=== PATIENT | male | born 1950 | race Caucasian/White ===

== ENCOUNTER 2016-12-17 16:44 | Emergency (ER) | payer MEDICARE, BC ==
[2016-12-17 17:03] VITALS: BP 135/77
--- OUTSIDE RECORDS SUMMARY | 2016-12-17 18:32 | XMS REPORT | Continuity of Care Document ---
:1950 Author Organization [facility] ([facility]) [place] [address] Phone [phone] Care Team Providers Name Role Phone Andres Smyth Primary Care Provider [phone] Source Comments This disclosure is being made pursuant to the Care Everywhere program, applicable federal and state laws, and may not contain all informaitonavailable regarding this patient.[facility] ([facility]) Active Allergies and Adverse Reactions Allergen Noted Date Severity Reactions Comments Loratadine 11/15/2011 Visual changes Penicillins 11/15/2011 Anaphylaxis Pseudoephedrine Tannate 11/15/2011 OTHER insomnia Sertraline 11/15/2011 Headache Sildenafil 11/15/2011 Unknown Tadalafil 11/15/2011 Unknown Terazosin 11/15/2011 Dizziness Tetracycline 11/15/2011 Anaphylaxis Trinalin 11/15/2011 OTHER insomnia Current Medications Prescription Sig. Disp. Refills Start Date End Date Status aspirin 81 mg EC Take 81 mg by mouth Active tablet daily. gabapentin 300 mg Take 300 mg by mouth 2 Active capsule times daily. hydrALAZINE 100 mg Take 100 mg by mouth 3 Active tablet times daily. acebutolol 400 mg Take 400 mg by mouth 2 Active capsule times daily. azelastine (ASTELIN) use 1 [place] into the Active 0.1 % (137 mcg) nasal nose 2 times daily. Use spray in each nostril as directed testosterone inject 200 mg Active cypionate intramuscularly every (DEPO-TESTOSTERONE) week. 200 mg/mL injection hydrOXYzine HCl 25 mg Take 100 mg by mouth 2 Active tablet times daily. gemfibrozil 600 mg Take 600 mg by mouth 2 Active tablet times daily. vardenafil (LEVITRA) Take 20 mg by mouth as Active 20 mg tablet needed. omega-3 fatty acids Take 2 g by mouth 2 Active (LOVAZA) 1 gram cap times daily. pirbuterol (MAXAIR Use 2 Puffs by Active AUTOHALER) 200 inhalation every 4 mcg/Inhalation hours as needed. inhaler metFORMIN 500 mg Take 500 mg by mouth 2 Active tablet times daily with meals. triamcinolone use 2 Sprays into the Active (NASACORT AQ) 55 mcg nose as needed. nasal inhaler amLODIPine (NORVASC) Take 10 mg by mouth Active 10 mg tablet daily. triamterene-hydrochlo Take 1 Tab by mouth Active rothiazide 75-50 mg daily. per tablet montelukast Take 10 mg by mouth Active (SINGULAIR) 10 mg daily. tablet salmeterol (SEREVENT Use 1 Puff by Active DISKUS) 50 mcg/dose inhalation 2 times diskus inhaler daily. losartan 25 mg tablet Take 25 mg by mouth Active daily. FLUTICASONE Use by inhalation as Active PROPIONATE (FLOVENT needed. HFA INH) tamsulosin (FLOMAX) Take 0.4 mg by mouth Active 0.4 mg ER capsule daily. Active Problems Problem Noted Date Enlarged prostate with urinary retention 11/17/2011 Diabetes mellitus 11/17/2011 HTN (hypertension) 11/17/2011 Asthma 11/17/2011 Arthritis 11/17/2011 Social History Tobacco Use Types Packs/Day Years Used Date Never Smoker Smokeless Tobacco: Never Used Alcohol Use Drinks/Week oz/Week Comments Yes Last Filed Vital Signs Vital Sign Reading Time Taken Blood Pressure 146/84 12/15/2011 2:00 PM [employer] Pulse 82 12/15/2011 2:00 PM [employer]ING [employer] Temperature 36.8 C (98.3 F) 12/15/2011 2:00 PM [employer]ING [employer]ING [employer]ERK Respiratory Rate 20 12/15/2011 2:00 PM [employer]CH[employer]ING [employer]ING [employer] Height 1.791 m (5' 10.5") 12/15/2011 2:00 PM [employer]CH[employer]ING [employer]ING CLERK Weight 117.935 kg (260 lb) 12/15/2011 2:00 PM [employer]CH[employer]ING [employer]ING [employer]ERK Body Mass Index 36.77 12/15/2011 2:00 PM [employer]CH[employer]ING [employer]ING [employer]ERK Oxygen Saturation 95% 12/15/2011 2:00 PM [employer]CH[employer]ING [employer]ING CLERK Plan of Care Health Maintenance Due Date Last Done Comments HCV Screening 1950 Hepatitis B Vaccine (1 of 3 - Primary Series) 1950 Tdap Vaccine 1960 DIABETIC: Cholesterol 1967 Diabetic: Hdl 1967 DIABETIC: Hemoglobin A1C 1967 Diabetic: Ldl 1967 DIABETIC: Microalbumin 1967 DIABETIC: Triglycerides 1967 Td Vaccine 1967 Colonoscopy 1999 Prostate Cancer Screening 1999 Zoster Vaccine 2009 DIABETIC: Foot Exam 12/03/2011 DIABETIC: Retinal Eye Exam 12/03/2011 Pneumococcal Vaccine (1 of 2 - PCV13) 2014 Influenza Vaccine: Seasonal (#1) 05/24/2016 Results from Last 3 Months Not on file
--- NOTE | 2016-12-17 18:41 | ERNOTE ---
Medical Problem HPI - Narrative Date of Service: 12/17/16 - General Chief Complaint: General Assessment Time Seen by Provider: 12/17/16 18:13 Source: patient Exam Limitations: no limitations - Immun/Allergies/Home Medications Immunizations: IMMUNIZATION HX Immunizations Up to Date Yes History of Influenza Vaccine Yes Allergies/Adverse Reactions: Allergies apple [Apple] Allergy (Severe, Verified 01/21/14 16:32) Anaphylaxis Penicillins Allergy (Severe, Verified 01/21/14 16:32) Hives Tetracyclines Allergy (Severe, Verified 01/21/14 16:32) Anaphylaxis doxycycline Allergy (Intermediate, Verified 01/21/14 16:32) Hives grass pollen-perennial rye, standar Adverse Reaction (Mild, Verified 01/21/14 16 :32) Other guaifenesin [From Entex LQ] Adverse Reaction (Mild, Verified 01/21/14 16:32) Other house dust Adverse Reaction (Mild, Verified 01/21/14 16:32) Sneezing loratadine [From Claritin] Adverse Reaction (Mild, Verified 01/21/14 16:32) Other phenylephrine HCl [From Entex LQ] Adverse Reaction (Mild, Verified 01/21/14 16: 32) Other sertraline HCl [From Zoloft] Adverse Reaction (Mild, Verified 01/21/14 16:32) Other sildenafil citrate [From Viagra] Adverse Reaction (Mild, Verified 01/21/14 16:32 ) Other tadalafil [From Cialis] Adverse Reaction (Mild, Verified 01/21/14 16:32) Other terazosin Adverse Reaction (Mild, Verified 01/21/14 16:32) Other Mold Adverse Reaction (Mild, Uncoded 01/21/14 16:32) Other Potatoes Adverse Reaction (Mild, Uncoded 01/21/14 16:32) Other Ragweed Adverse Reaction (Mild, Uncoded 01/21/14 16:32) Other Trees Adverse Reaction (Mild, Uncoded 01/21/14 16:32) Other Trinalin Adverse Reaction (Mild, Uncoded 01/21/14 16:32) Other Home Medications: HOME MEDICATIONS Acebutolol HCl 400 mg PO BID 01/21/14 [Last Taken Unknown] Aspirin [Elmo Chewable Aspirin] 81 mg PO DAILY 01/21/14 [Last Taken Unknown] Atorvastatin Calcium 40 mg PO DAILY 01/21/14 [Last Taken Unknown] Cyanocobalamin (Vitamin B-12) [B-12] 1,500 mcg PO DAILY 01/21/14 [Last Taken Unknown] Fluticasone Propionate [Flonase] 1 spray NS DAILY 01/21/14 [Last Taken Unknown] Gabapentin 600 mg PO QID 01/21/14 [Last Taken Unknown] Gemfibrozil 600 mg PO BID 01/21/14 [Last Taken Unknown] Hydralazine HCl 100 mg PO TID 01/21/14 [Last Taken Unknown] Hydroxyzine HCl 75 mg PO QID 01/21/14 [Last Taken Unknown] Losartan Potassium 100 mg PO DAILY 01/21/14 [Last Taken Unknown] Triamterene/Hydrochlorothiazid [Triamterene-Hctz 75-50 mg Tab] 1 each PO DAILY 01/21/14 [Last Taken Unknown] Zolpidem Tartrate [Ambien] 10 mg PO HS 01/21/14 [Last Taken Unknown] Albuterol Sulfate [Albuterol Sulfate 2.5 MG/0.5ML] 2.5 mg IH Q4H PRN #0 vial.neb 01/22/14 [Last Taken Unknown] Fluticasone Propionate [Flovent Hfa] 1 puff IH BID #0 aer.w.adap 01/22/14 [Last Taken Unknown] Salmeterol Xinafoate [Serevent Diskus] 50 mcg IH Q12H PRN #0 01/22/14 [Last Taken Unknown] Flexeril 10/21/15 [Last Taken Unknown] Glipizide 10/21/15 [Last Taken Unknown] Opti-Clear 10/21/15 [Last Taken Unknown] Pantoprazole Sodium 10/21/15 [Last Taken Unknown] Valacyclovir HCl 10/21/15 [Last Taken Unknown] Viagra 10/21/15 [Last Taken Unknown] Zafirlukast 10/21/15 [Last Taken Unknown] Tramadol HCl 11/08/16 [Last Taken Unknown] Sulfamethoxazole/Trimethoprim [Bactrim Ds] 1 tab PO BID #28 tab 12/17/16 [Last Taken Unknown] - History of Present History Narrative: Pt. comes in with c/o R buttock wounds that pt. noted a week ago. Pt. denies any numbness or tingling but states that he has decreased activity level since having spine surgery on his neck four weeks ago. Pt. was seen by his spine surgeon for this and was told to apply neosporin but would like a second opinion to evaluate for infection. Pt. states that they are going out of town until the 24 of December. - Social History Smoking Status: Never smoker - Immunizations Immunizations Up to Date: Yes History of Influenza Vaccine: Yes ED Progress - Date and Time Seen: Date and Time: 12/17/16 18:33 Will dress wound with bacitracin and mepilex here and place on ABX and prescribe gel cushion until seen by wound clinic when pt. returns from [facility] after 12/24. - Vital Signs Patient's Vital Signs:: I have reviewed the patient's vital signs. Vital Signs: Vital Signs 12/17/16 16:56 Temperature 36.5 C Pulse Rate 84 Respiratory 20 Rate Blood Pressure 135/77 O2 Sat by Pulse 92 Oximetry - Progress/Reassessment Chief Complaint: General Assessment Departure - Departure Clinical Impression: Cellulitis and abscess of buttock Pressure ulcer Qualifiers: Pressure ulcer location: buttock Pressure ulcer stage: unstageable Laterality: right Qualified Code(s): L89.310 - Pressure ulcer of right buttock, unstageable Disposition: Home self-care Condition: Good Instructions: How to Prevent Pressure Injuries Additional Instructions: Please use cushion in chair everywhere you go. Please change dressing daily with neosporin and mepilex. Please follow up with our wound clinic when you return on 12/24. Referrals: Andres Philippe MD [Primary Care Provider] - Prescriptions: Sulfamethoxazole/Trimethoprim [Bactrim Ds] 1 tab PO BID #28 tab
== END 2016-12-17 19:10 | disposition home or self-care (01) ==
LOC: ER 16:44
DX: L03.317 Cellulitis of buttock (principal); L02.31 Cutaneous abscess of buttock; L89.310 Pressure ulcer of right buttock, unstageable

== ENCOUNTER 2017-06-30 11:22 | Emergency (ER) | payer MEDICARE, BC ==
--- NOTE | 2017-06-30 12:16 | ERNOTE ---
Medical Problem HPI - General Chief Complaint: General Assessment Time Seen by Provider: 06/30/17 11:46 Source: patient, family Exam Limitations: no limitations - Immun/Allergies/Home Medications Immunizations: IMMUNIZATION HX Immunizations Up to Date Yes History of Influenza Vaccine Yes Allergies/Adverse Reactions: Allergies apple [Apple] Allergy (Severe, Verified 06/30/17 11:35) Anaphylaxis Penicillins Allergy (Severe, Verified 06/30/17 11:35) Hives Tetracyclines Allergy (Severe, Verified 06/30/17 11:35) Anaphylaxis doxycycline Allergy (Intermediate, Verified 06/30/17 11:35) Hives grass pollen-perennial rye, standar Adverse Reaction (Mild, Verified 06/30/17 11 :35) Other guaifenesin [From Entex LQ] Adverse Reaction (Mild, Verified 06/30/17 11:35) Other house dust Adverse Reaction (Mild, Verified 06/30/17 11:35) Sneezing loratadine [From Claritin] Adverse Reaction (Mild, Verified 06/30/17 11:35) Other phenylephrine HCl [From Entex LQ] Adverse Reaction (Mild, Verified 06/30/17 11: 35) Other sertraline HCl [From Zoloft] Adverse Reaction (Mild, Verified 06/30/17 11:35) Other sildenafil citrate [From Viagra] Adverse Reaction (Mild, Verified 06/30/17 11:35 ) Other tadalafil [From Cialis] Adverse Reaction (Mild, Verified 06/30/17 11:35) Other terazosin Adverse Reaction (Mild, Verified 06/30/17 11:35) Other Mold Adverse Reaction (Mild, Uncoded 06/30/17 11:35) Other Potatoes Adverse Reaction (Mild, Uncoded 06/30/17 11:35) Other Ragweed Adverse Reaction (Mild, Uncoded 06/30/17 11:35) Other Trees Adverse Reaction (Mild, Uncoded 06/30/17 11:35) Other Trinalin Adverse Reaction (Mild, Uncoded 06/30/17 11:35) Other Home Medications: HOME MEDICATIONS Acebutolol HCl 400 mg PO BID 01/21/14 [Last Taken Unknown] Aspirin [[place]mo Chewable Aspirin] 81 mg PO DAILY 01/21/14 [Last Taken Unknown] Atorvastatin Calcium 40 mg PO DAILY 01/21/14 [Last Taken Unknown] Cyanocobalamin (Vitamin B-12) [B-12] 1,500 mcg PO DAILY 01/21/14 [Last Taken Unknown] Fluticasone Propionate [Flonase] 1 spray NS DAILY 01/21/14 [Last Taken Unknown] Gabapentin 600 mg PO QID 01/21/14 [Last Taken Unknown] Gemfibrozil 600 mg PO BID 01/21/14 [Last Taken Unknown] Hydralazine HCl 100 mg PO TID 01/21/14 [Last Taken Unknown] Losartan Potassium 100 mg PO DAILY 01/21/14 [Last Taken Unknown] Triamterene/Hydrochlorothiazid [Triamterene-Hctz 75-50 mg Tab] 1 each PO DAILY 01/21/14 [Last Taken Unknown] Zolpidem Tartrate [Ambien] 10 mg PO HS 01/21/14 [Last Taken Unknown] hydrOXYzine HCL [Hydroxyzine HCl] 25 mg PO QID 01/21/14 [Last Taken Unknown] Albuterol Sulfate [Albuterol Sulfate 2.5 MG/0.5ML] 2.5 mg IH Q4H PRN #0 vial.neb 01/22/14 [Last Taken Unknown] Fluticasone Propionate [Flovent Hfa] 1 puff IH BID #0 aer.w.adap 01/22/14 [Last Taken Unknown] Salmeterol Xinafoate [Serevent Diskus] 50 mcg IH Q12H PRN #0 01/22/14 [Last Taken Unknown] Flexeril 10 mg PO PRN PRN 10/21/15 [Last Taken Unknown] Glipizide 10 mg PO DAILY 10/21/15 [Last Taken Unknown] Opti-Clear 1 drp EACHEYE DAILY 10/21/15 [Last Taken Unknown] Pantoprazole Sodium 40 mg PO DAILY 10/21/15 [Last Taken Unknown] Valacyclovir HCl 500 mg PO PRN PRN 10/21/15 [Last Taken Unknown] Viagra 100 mg PO DAILY 10/21/15 [Last Taken Unknown] Insulin Syringe 06/10/17 [Last Taken Unknown] Oxycodone 2 mg PO Q4H PRN 06/10/17 [Last Taken Unknown] Amitriptyline HCl [Elavil] 50 mg PO DAILY 06/30/17 [Last Taken Unknown] Furosemide 20 mg PO DAILY 06/30/17 [Last Taken Unknown] Montelukast Sodium [Singulair] 10 mg PO DAILY 06/30/17 [Last Taken Unknown] - History of Present History Narrative: Patient had knee surgery in April and was in the [facility] for rehab afterwards. While there he developed a painful nodule on his right buttock that opened up later and drained. On a follow up appointment with Dr Ndiaye for his c -spine he had an MRI of that buttock area ordered which was apparently non concerning. He saw his PCP Dr Smyth on 06/20 and referred to the wound clinic for an appointment tomorrow. The area is still very painful (when he sits on it). He takes percocet for the pain and has minimal pain when not putting pressure on his right buttock. Review of Systems - Review of Systems Constitutional: Absent: recent illness, fever Respiratory: Absent: shortness of breath Cardiology: Absent: chest pain Gastrointestinal/Abdominal: Absent: nausea, vomiting, abdominal pain Genitourinary: Present: no symptoms reported Musculoskeletal: Present: See HPI Skin: Present: See HPI Neurological: Present: numbness - chronic neuropathy - Patient's Past Medical History Patient History - Medical: Diabetes Type 2, GERD Patient History - Cardiac/Respiratory: Asthma, Hypertension, Hyperlipidemia, CPAP/BiPAP Home Use, Sleep Apnea Patient History - Cancer: No Hx of Cancer Patient History - Surgical Procedures: Back Surgery, Total Knee Replacement, Other Patient History - Other: None - Family History Father Family History - Medical: Mother Family History - Medical: - Social History Living Situations: home Abuse History: No History of abuse Psych History: No pertinent hx Smoking Status: Never smoker Alcohol Use: occasionally Drug Use: none - Immunizations Immunizations Up to Date: Yes History of Influenza Vaccine: Yes Physical Exam - Physical Exam General Appearance: Present: wd/wn, alert, no apparent distress, obese Respiratory: Present: no respiratory distress, normal breath sounds, no accessory muscle use, lungs clear Cardiovascular/Chest: Present: regular rate, rhythm, no murmur Back Exam: Present: normal inspection - well healed scar Neurological Exam: Present: alert, oriented Skin Exam: Present: normal color, warm/dry, other - right buttock about 1x2cm ulcer, minimal erythema, no drainage, no induration, slightly tender to touch ED Progress - Vital Signs Patient's Vital Signs:: I have reviewed the patient's vital signs. Vital Signs: Vital Signs 06/30/17 06/30/17 11:30 11:51 Temperature 37 C Pulse Rate 78 79 Respiratory 14 Rate Blood Pressure 130/74 148/76 O2 Sat by Pulse 95 96 Oximetry - Progress/Reassessment Chief Complaint: General Assessment Progress Note-Subjective: 06/30/17 12:[address] Smyth, no other new information, needs to follow up in wound center tomorrow Departure - Departure Clinical Impression: Pressure ulcer Qualifiers: Pressure ulcer location: buttock Pressure ulcer stage: stage 3 Laterality: right Qualified Code(s): L89.313 - Pressure ulcer of right buttock, stage 3 Disposition: Home Follow Up Needed Condition: Stable Instructions: How to Prevent Pressure Injuries Additional Instructions: follow up in the wound care center tomorrow as scheduled Referrals: Andres Philippe MD [Primary Care Provider] -
[2017-06-30 12:19] VITALS: BP 137/75
== END 2017-06-30 12:22 | disposition home or self-care (01) ==
LOC: ER 11:22
DX: L89.313 Pressure ulcer of right buttock, stage 3 (principal); E78.5 Hyperlipidemia, unspecified